=== PATIENT | female | born 1990 | race African-American/Black ===

== ENCOUNTER 2016-12-06 03:26 | Emergency (ER) | payer MEDICAID ==
[~2016-12-06] VITALS: Ht 160 cm; Wt 64.0 kg
[~2016-12-06 03:26] MED LIST: PREN-88 PO
[2016-12-06 07:46] LABS: CLARITY URINE CLOUDY (CLEAR); COLOR URINE YELLOW (YELLOW); GLUCOSE URINE NEGATIVE (NEGATIVE); KETONES URINE NEGATIVE (NEGATIVE); LEUKOCYTE ESTERASE URINE NEGATIVE (NEGATIVE); NITRITE URINE POSITIVE (NEGATIVE); OCCULT BLOOD URINE NEGATIVE (NEGATIVE); PH URINE 5.5 (4.5-8.0); PROTEIN URINE NEGATIVE (NEGATIVE); SPECIFIC GRAVITY URINE 1.027 (1.005-1.030)
[2016-12-06 08:34] LABS: CARBON DIOXIDE 28 mEq/L (21-32); CHLORIDE 107 mEq/L (98-107); TROPONIN I < 0.02 ng/mL (0.00-0.04)
[2016-12-06 08:45] LABS: BASOPHILS % 0.4 % (0.0-2.0); EOSINOPHILS % 1.7 % (0.0-5.0); HEMATOCRIT. 36.3 % (36.0-48.0); HEMOGLOBIN. 11.9 g/dL (12.0-16.0); LYMPHOCYTES % 21.4 % (20.0-50.0); MEAN CORPUSCULAR HEMOGLOBIN 28.6 pg (28.0-32.0); MEAN CORPUSCULAR VOLUME 86.9 fL (81.0-99.0); MEAN PLATELET VOLUME 10.8 fl (7.4-10.4); MONOCYTES % 3.3 % (2.0-8.0); NEUTROPHILS % 73.2 % (40.0-76.0); PLATELET 159 x1000/uL (130-400); RED BLOOD CELL COUNT 4.17 mill/uL (4.2-5.4); RED CELL DISTRIBUTION WIDTH 12.6 % (11.6-14.6)
[2016-12-06 10:39] LABS: HCG SCREEN NEGATIVE
[2016-12-06 13:10] VITALS: BP 110/76
== END 2016-12-06 13:12 | disposition home or self-care (01) ==
LOC: ER 07:34
DX: J06.9 Acute upper respiratory infection, unspecified (principal); R30.0 Dysuria; R35.0 Frequency of micturition; F12.10 Cannabis abuse, uncomplicated
CPT/HCPCS: 36415; 71010; 74176; 80053; 81001; 83605; 84484; 84703; 85025; 87040; 93005; 99285

== ENCOUNTER 2017-02-02 17:09 | Emergency (ER) | payer MEDICAID ==
[~2017-02-02] VITALS: Ht 160 cm; Wt 57.0 kg
[2017-02-02] MEDS ORDERED: BACITRACIN ZINC OINT UDPKT TOP ONE (23:15)
[2017-02-02] MEDS ORDERED: ACETAMINOPHEN WITH CODEINE 300/30MG TABLET PO ONE (23:15)
[2017-02-03 00:15] VITALS: BP 118/56
== END 2017-02-03 01:55 | disposition home or self-care (01) ==
LOC: ER 17:47
DX: S80.812A Abrasion, left lower leg, initial encounter (principal); S70.312A Abrasion, left thigh, initial encounter; S80.211A Abrasion, right knee, initial encounter; S40.212A Abrasion of left shoulder, initial encounter; F12.10 Cannabis abuse, uncomplicated; V09.9XXA Pedestrian injured in unspecified transport accident, initial encounter; Y93.89 Activity, other specified; Y92.89 Other specified places as the place of occurrence of the external cause; Y99.8 Other external cause status
CPT/HCPCS: 81025; 99283; Z7610

== ENCOUNTER 2017-10-06 20:20 | Emergency (ER) | payer MEDICAID ==
[~2017-10-06] VITALS: Ht 160 cm; Wt 62.0 kg
[2017-10-06] MEDS ORDERED: MORPHINE SULFATE 4 MG/ML CPJ (NOT FOR IM USE) IV STA (21:49)
[2017-10-06] MEDS ORDERED: SODIUM CHLORIDE 0.9% 1,000 ML IV ONE (21:49)
[2017-10-06] MEDS ORDERED: ONDANSETRON HCL 4MG/2ML VIAL IV STA (21:49)
[2017-10-06] MEDS ORDERED: ACETAMINOPHEN 325MG TABLET PO ONE (22:30)
[2017-10-06 22:48] LABS: BASOPHILS % 0.2 % (0.0-2.0); EOSINOPHILS % 0.6 % (0.0-5.0); HEMATOCRIT. 38.9 % (36.0-48.0); HEMOGLOBIN. 13.2 g/dL (12.0-16.0); LYMPHOCYTES % 18.9 % (20.0-50.0); MEAN CORPUSCULAR HEMOGLOBIN 29.6 pg (28.0-32.0); MEAN CORPUSCULAR VOLUME 87.2 fL (81.0-99.0); MEAN PLATELET VOLUME 10.8 fl (7.4-10.4); MONOCYTES % 3.6 % (2.0-8.0); NEUTROPHILS % 76.7 % (40.0-76.0); PLATELET 218 x1000/uL (130-400); RED BLOOD CELL COUNT 4.46 mill/uL (4.2-5.4); RED CELL DISTRIBUTION WIDTH 12.4 % (11.6-14.6)
[2017-10-06 22:51] LABS: CHLORIDE 101 mEq/L (98-107)
[2017-10-06 22:52] LABS: CLARITY URINE CLEAR (CLEAR); COLOR URINE YELLOW (YELLOW); HCG SCREEN POSITIVE; KETONES URINE 1+ (NEGATIVE); LEUKOCYTE ESTERASE URINE NEGATIVE (NEGATIVE); NITRITE URINE NEGATIVE (NEGATIVE); OCCULT BLOOD URINE NEGATIVE (NEGATIVE); PH URINE 6.5 (4.5-8.0); PROTEIN URINE NEGATIVE (NEGATIVE); SPECIFIC GRAVITY URINE 1.024 (1.005-1.030)
[2017-10-06 23:00] LABS: PROTHROMBIN TIME 10.1 sec (9.4-11.6)
[2017-10-07 00:55] LABS: B-HCG QUANTITATIVE > 200000 mIU/mL (<3)
[2017-10-07] MEDS ORDERED: MORPHINE SULFATE 4 MG/ML CPJ (NOT FOR IM USE) IV ONE (01:00)
[2017-10-07] MEDS ORDERED: ONDANSETRON HCL 4MG/2ML VIAL IV ONE (01:00)
[2017-10-07 10:31] VITALS: BP 109/55
== END 2017-10-07 10:35 | disposition home or self-care (01) ==
LOC: ER 22:31
DX: O26.891 Other specified pregnancy related conditions, first trimester (principal); R10.84 Generalized abdominal pain; O20.9 Hemorrhage in early pregnancy, unspecified; O99.331 Smoking (tobacco) complicating pregnancy, first trimester; F17.210 Nicotine dependence, cigarettes, uncomplicated; Z3A.08 8 weeks gestation of pregnancy
CPT/HCPCS: 36415; 74181; 76700; 76801; 76817; 80053; 81003; 83690; 84702; 84703; 85025; 85610; 85730; 86850; 86900; 86901; 93005; 96361; 96374; 96375; 96376; 99285; J2270; J2405; J7030; Z7610

== ENCOUNTER 2018-01-28 03:06 | Emergency (ER) | payer MEDICAID ==
[~2018-01-28] VITALS: Ht 167.6 cm; Wt 65.0 kg
[2018-01-28 05:49] VITALS: BP 110/52
== END 2018-01-28 06:21 | disposition home or self-care (01) ==
LOC: ER 03:06
DX: O26.893 Other specified pregnancy related conditions, third trimester (principal); J20.9 Acute bronchitis, unspecified; Z3A.29 29 weeks gestation of pregnancy; Z98.890 Other specified postprocedural states
CPT/HCPCS: 71045; 99283

== ENCOUNTER 2018-04-10 21:31 | Observation (INO) | payer MEDICAID ==
[~2018-04-10] VITALS: Ht 160 cm; Wt 89.8 kg
[2018-04-10] MEDS ORDERED: FERR236T3 MT (22:24)
[2018-04-10] MEDS ORDERED: CALC-1042 MT (22:24)
[2018-04-10] MEDS ORDERED: TERB2.5T2 PO (22:24)
[2018-04-10] MEDS ORDERED: LACTATED RINGERS 1,000 ML IV SCH (22:30)
[2018-04-10 22:52] LABS: CLARITY URINE CLEAR (CLEAR); COLOR URINE YELLOW (YELLOW); KETONES URINE NEGATIVE (NEGATIVE); LEUKOCYTE ESTERASE URINE NEGATIVE (NEGATIVE); NITRITE URINE NEGATIVE (NEGATIVE); OCCULT BLOOD URINE 2+ (NEGATIVE); PH URINE 6.5 (4.5-8.0); PROTEIN URINE NEGATIVE (NEGATIVE)
[2018-04-10] MEDS ORDERED: ACETAMINOPHEN 500MG TABLET PO NR (23:50)
== END 2018-04-11 00:30 | disposition home or self-care (01) ==
LOC: L&D 21:31
PROVIDERS: ADMIT Obstetrics & Gynecology; ATTEND Obstetrics & Gynecology
DX: O26.893 Other specified pregnancy related conditions, third trimester (principal); R10.30 Lower abdominal pain, unspecified; M54.5 Low back pain; Z3A.36 36 weeks gestation of pregnancy
CPT/HCPCS: 81003; 99281; G0378; 96360

== ENCOUNTER 2021-03-26 21:05 | Emergency (ER) | payer MEDICAID ==
[~2021-03-26] VITALS: Ht 160 cm; Wt 75.0 kg
[~2021-03-26 21:05] MED LIST changes: +CALC-1042 MT; +FERR236T3 MT; +TERB2.5T2 PO
[2021-03-26 21:30] VITALS: BP 111/66
[2021-03-26] MEDS ORDERED: ACETAMINOPHEN 325MG TABLET PO ONE (22:30)
[2021-03-26] MEDS ORDERED: NAPR-1176 MT (22:37)
[2021-03-26] MEDS ORDERED: BENZ-16 MT (22:37)
[2021-03-26] MEDS ORDERED: TOPUD MT (22:37)
== END 2021-03-26 23:21 | disposition home or self-care (01) ==
LOC: ER 21:05
DX: R05.9 Cough, unspecified (principal); J22 Unspecified acute lower respiratory infection; Z20.822 Contact with and (suspected) exposure to COVID-19; Z98.890 Other specified postprocedural states
CPT/HCPCS: 81025; 99283; C9803; U0003; U0005

== ENCOUNTER 2021-05-24 13:58 | Emergency (ER) | payer MEDICAID ==
[~2021-05-24] VITALS: Ht 160 cm; Wt 73.0 kg
[~2021-05-24 13:58] MED LIST changes: +BENZ-16 MT; +NAPR-1176 MT; +TOPUD MT
[2021-05-24] MEDS ORDERED: IBUPROFEN 600MG TABLET PO ONE (16:30)
[2021-05-24] MEDS ORDERED: ACETAMINOPHEN 325MG TABLET PO ONE (19:00)
[2021-05-24] MEDS ORDERED: IBUP-2029 MT (19:54)
[2021-05-24 20:10] VITALS: BP 118/60
== END 2021-05-24 20:13 | disposition home or self-care (01) ==
LOC: ER 13:58
DX: S16.1XXA Strain of muscle, fascia and tendon at neck level, initial encounter (principal); Z98.890 Other specified postprocedural states; V49.9XXA Car occupant (driver) (passenger) injured in unspecified traffic accident, initial encounter; Y93.89 Activity, other specified; Y92.89 Other specified places as the place of occurrence of the external cause; Y99.8 Other external cause status
CPT/HCPCS: 81025; 99284

== ENCOUNTER 2023-10-21 22:16 | Emergency (ER) | payer MEDICAID, OTHER ==
[~2023-10-21] VITALS: Ht 160 cm; Wt 74.0 kg
[~2023-10-21 22:16] MED LIST changes: +IBUP-2029 MT
[2023-10-21 22:28] VITALS: O2SAT 98
[2023-10-21] MEDS: ACETAMINOPHEN 325MG TABLET PO ONE (23:00)
[2023-10-22 04:36] VITALS: BP 110/66; PULSE 78; RESP 16; TEMP 98.4
== END 2023-10-22 04:39 | disposition home or self-care (01) ==
LOC: ER 22:16
DX: R05.9 Cough, unspecified (principal); J06.9 Acute upper respiratory infection, unspecified; Z98.890 Other specified postprocedural states; Z79.899 Other long term (current) drug therapy
CPT/HCPCS: 99282